=== PATIENT | male | born 1985 | race African-American/Black ===

== ENCOUNTER 2023-07-06 23:17 | Emergency (ER) | payer OTHER, MEDICAID ==
[~2023-07-06] VITALS: Ht 172.7 cm; Wt 70.0 kg
[2023-07-06 23:24] VITALS: BP 132/70; PULSE 80; RESP 16; TEMP 98.5; O2SAT 98
[2023-07-07] MEDS ORDERED: BACITRACIN ZINC OINT UDPKT TOP ONE
[2023-07-07] MEDS ORDERED: TETANUS, DIPHTHERIA, PERTUSSIS VAC/PF 0.5ML (>10YR OLD) IM ONE
[2023-07-07] MEDS ORDERED: LIDOCAINE HCL/PF 1% 10 MG/ML 5ML VIAL INFIL ONE ×2 (01:30)
[2023-07-07] MEDS ORDERED: AMOX1TAB16 MT (02:42)
== END 2023-07-07 03:28 | disposition home or self-care (01) ==
LOC: ER 23:17
DX: R51.9 Headache, unspecified (principal); J45.909 Unspecified asthma, uncomplicated
CPT/HCPCS: 99285; 12015; 70450; 70486; 90715; 90471; J3490